=== PATIENT | female | born 1990 | race Two or more races ===

== ENCOUNTER 2024-05-08 10:19 | Emergency (ER) | payer BC ==
[~2024-05-08] VITALS: Ht 152.4 cm; Wt 53.5 kg
[2024-05-08 11:50] LABS: BASOPHILS % (AUTO) 0.3 % (0.0-2.0); EOSINOPHILS # (AUTO) 0.1 K/uL (0.0-0.7); EOSINOPHILS % (AUTO) 1.1 % (0.0-6.0); HEMATOCRIT 41 % (33-45); HEMOGLOBIN 13.9 g/dL (11.5-14.8); LYMPHOCYTES % (AUTO) 27.4 % (20.0-44.0); MEAN CORPUSCULAR HEMOGLOBIN 31 PG (26.0-33.0); MEAN CORPUSCULAR HGB CONC 34 g/dl (31.0-36.0); MEAN CORPUSCULAR VOLUME 90 fL (82-100); MONOCYTES # (AUTO) 0.4 K/uL (0.1-1.30); MONOCYTES % (AUTO) 5.9 % (2.0-12.0); NEUTROPHILS # (AUTO) 4.8 K/uL (1.8-8.9); NEUTROPHILS % (AUTO) 65.3 % (43.0-81.0); PLATELET COUNT (AUTO) 327 K/uL (150-450); RED BLOOD CELL COUNT(AUTO) 4.56 MIL/uL (4.0-5.2); WHITE BLOOD COUNT (AUTO) 7.3 K/uL (4.3-11.0)
[2024-05-08] MEDS ORDERED: IOHEXOL-350 100 ML VIAL IV ONE (11:52)
[2024-05-08] MEDS: IV NS 0.9% 1,000 ML BAG IV ONE (11:54)
[2024-05-08 12:04] LABS: MAGNESIUM 2.2 mg/dL (1.8-2.4); PHOSPHORUS 3.8 mg/dL (2.5-4.9)
[2024-05-08 12:07] LABS: ALBUMIN 4.5 g/dL (3.4-5.0); BILIRUBIN,DIRECT 0.1 mg/dL (0.0-0.2); CALCIUM, SERUM 9.5 mg/dL (8.5-10.1); CREATININE 0.5 mg/dL (0.6-1.3); POTASSIUM 3.7 mmol/L (3.5-5.1); TOTAL PROTEIN, SERUM 8.6 g/dL (6.4-8.2)
[2024-05-08 12:15] LABS: THYROID STIMULATING HORMONE 1.3 uIU/mL (0.358-3.74)
[2024-05-08] MEDS ORDERED: PRED20TA PO (13:26)
[2024-05-08] MEDS ORDERED: dexaMETHasone SOD PHOSPHATE 1 ML ONE (13:30)
[2024-05-08] MEDS: dexaMETHasone SOD PHOSPHATE 10 MG/ML VIAL IV ONE (13:31)
[2024-05-08 14:32] VITALS: BP 124/68; TEMP 97.8; O2SAT 98
== END 2024-05-08 14:33 | disposition home or self-care (01) ==
LOC: ER 10:35
DX: G47.9 Sleep disorder, unspecified (principal); R20.0 Anesthesia of skin; R53.1 Weakness; Z87.891 Personal history of nicotine dependence
CPT/HCPCS: 99285; 70498; 96374; 96361; 93005; 70496; 85025; 80048; 80076; 83735; 84100; 36415; 84443; 82962; 70450; J1100; J7030; Q9967